=== PATIENT | female | born 1980 | race Caucasian/White ===

== ENCOUNTER 2019-03-12 01:13 | Emergency (ER) | payer OTHER ==
[~2019-03-12] VITALS: Ht 172.7 cm; Wt 93.0 kg
[2019-03-12] MEDS ORDERED: SPIRONOLACTONE100 M1 PO (01:18)
[2019-03-12 03:45] VITALS: BP 122/68
== END 2019-03-12 03:40 | disposition home or self-care (01) ==
LOC: ER 01:13
DX: S61.412A Laceration without foreign body of left hand, initial encounter (principal); Z79.899 Other long term (current) drug therapy; W25.XXXA Contact with sharp glass, initial encounter; Y93.89 Activity, other specified; Y92.89 Other specified places as the place of occurrence of the external cause; Y99.8 Other external cause status

== ENCOUNTER → 2020-01-24 | Outpatient (CLI) | payer OTHER ==
[~2020-01-24] MED LIST: SPIRONOLACTONE100 M1 PO
== END ==
LOC: RAD 13:49
DX: R06.02 Shortness of breath (principal)